=== PATIENT | female | born 1965 | race Caucasian/White ===

== ENCOUNTER 2017-01-04 20:57 | Emergency (ER) | payer OTHER ==
--- NOTE | ~2017-01-04 | CT4 ---
[facility] A Service of [facility] RADIOLOGY TEXT RESULTS PATIENT: NINI BROWN LOCATION: SED : 63 UNIT #: [id number] AGE: [address]: Issa Wilson MD SEX: F ORDER DR: [id number] [address] [address] [id number] MR#: [id number] Acc #: [id number] NAME: NINI BORWN : 1965 SEX: F STUDY DATE/TIME: 01/04/2017 21:31 UNIT: SED ROOM: STUDY DESCRIPTION: CT Abd and Pelv Wo Cont Attending Physician: Issa Wilson M.D. Ordering Physician: Issa Wilson M.D. Primary Care Physician: No Primary Care Physician MEDICAL IMAGING REPORT This report is preliminary unless electronic signature is present. EXAM CT abdomen and pelvis without contrast INDICATION Suspected kidney stone with left flank pain. Low abdomen pain all week. Frequent urination. COMPARISON 08/09/2009. TECHNIQUE Axial 3 mm images were obtained through the abdomen and pelvis without IV or oral contrast. This CT exam was performed with one or more of the following radiation dose reduction techniques: automatic exposure control, adjustment of mA and/or kV according to patient size, and iterative reconstruction. FINDINGS Lung bases are clear. Liver, gallbladder, spleen, pancreas, adrenal glands, and right kidney are normal. There is minimal edema around the left kidney but there is no definite hydronephrosis and I cannot identified any left ureteral stones. There is a calcification in the left side of the pelvis on image 121 but this is clearly outside the ureter. The aorta is normal in size. There is no adenopathy. The bowel is normal. The bladder is normal. The uterus has been removed. There are no adnexal masses. The bones are unremarkable. IMPRESSION There is some questionable minimal stranding around the left kidney but there is no hydronephrosis and no ureteral stones are visible. The study is otherwise normal. [facility] A Service of [facility] RADIOLOGY TEXT RESULTS PATIENT: NINI BROWN LOCATION: [facility] [place] 63 UNIT #: [id number] AGE: [address]: Issa Wilson MD SEX: F ORDER DR: Dictated by... Dimitry Arzate M.D. THIS IS AN ELECTRONICALLY VERIFIED REPORT Dimitry Arzate M.D. at 01/05/2017 4:33 PM BBOY/devorah TD: 01/05/2017 15:14 JOB #: [id number] MEDICAL IMAGING REPORT
[~2017-01-04 20:57] MED LIST: LISINOPRIL-HCTZ1 T18; LISINOPRIL10 MG; PERCOCET5/325 PO; TORADOL10 MG PO
[2017-01-04 21:27] LABS: URINE SOURCE CLEAN CATCH
[2017-01-04 21:29] LABS: BASOPHIL# 0.3 X10e3 (0-0.3); BASOPHIL% 1.2 % (0-2.5); EOSINOPHIL% 0.1 % (0.0-7.0); LYMPHOCYTE# 3.2 X10e3 (1.0-3.5); LYMPHOCYTE% 14.9 % (17.0-45.0); MEAN CELL VOLUME 93.4 FL (83-96); MEAN CORPUSCULAR HEMOGLOBIN 31.1 PG (28-34); MEAN CORPUSCULAR HGB CONC 33.3 g/dL (30-36); MEAN PLATELET VOLUME 8.2 FL (6.5-11.5); MONOCYTE# 1.5 X10e3 (0-1.0); MONOCYTE% 6.9 % (3.0-12.0); NEUTROPHIL# 16.6 X10e3 (1.5-7.1); NEUTROPHIL% 76.9 % (40-75); PLATELET COUNT 604 X10e3 (140-420); RED CELL DISTRIBUTION WIDTH 14.5 % (11.0-15.5); URINE APPEARANCE HAZY; URINE BILIRUBIN NEG (NEG); URINE BLOOD TRACE-INTACT (NEG); URINE COLOR YELLOW; URINE GLUCOSE NEG (NORM); URINE KETONE NEG (NEG); URINE LEUKOCYTE ESTERASE NEG (NEG); URINE NITRATE NEG (NEG); URINE PROTEIN NEG (NEG); URINE SPECIFIC GRAVITY 1.015 (1.003-1.035); URINE UROBILINOGEN 0.2 MG/DL (NORM); WHITE BLOOD COUNT 21.6 X10e3 (4.0-10.5)
[2017-01-04 21:30] LABS: DIFF IND YES
[2017-01-04 21:31] LABS: MICRO INDICATED? YES
[2017-01-04 21:36] LABS: URINE AMORPHOUS SEDIMENT AMORP PHOSPHATES; URINE BACTERIA NEG (NEG); URINE MUCUS PRESENT; URINE SQUAMOUS EPITHELIAL CELL OCCAS /[HPF]
[2017-01-04 21:38] LABS: BLOOD UREA NITROGEN 11 mg/dL (9-23); BUN/CREATININE RATIO 13.75; CALCIUM SERUM 9.3 mg/dL (8.4-10.2); CARBON DIOXIDE 27 mmol/L (22-31); CHLORIDE 97 mmol/L (100-111); CREATININE SERUM 0.8 mg/dL (0.6-1.4); GLOM FILT RATE Estimated ABOVE60 mL/min (>60); GLUCOSE FASTING 100 mg/dL (70-110); LIPASE 15 U/L (22-51); POTASSIUM 3.2 mmol/L (3.5-5.1); SODIUM 135 mmol/L (135-145)
[2017-01-04 21:41] LABS: ANISOCYTOSIS SL; PLATELET ESTIMATE INCREASED (NORMAL)
[2017-01-04 22:34] LABS: INFLUENZA A NEG (NEG); INFLUENZA B NEG (NEG)
== END 2017-01-04 23:31 | disposition home or self-care (01) ==
LOC: SED 20:57
PROVIDERS: Emergency Medicine
DX: N39.0 Urinary tract infection, site not specified (principal); R50.9 Fever, unspecified; I10 Essential (primary) hypertension; F17.210 Nicotine dependence, cigarettes, uncomplicated; Z90.49 Acquired absence of other specified parts of digestive tract; Z90.710 Acquired absence of both cervix and uterus; Z87.442 Personal history of urinary calculi
CPT/HCPCS: 36415; 74176; 80048; 81003; 83690; 85025; 87086; 87088; 87186; 87804; 96374; 96375; 99284; J2270; J2550